=== PATIENT | female | born 1965 | race Caucasian/White ===

== ENCOUNTER 2017-08-23 23:08 | Emergency (ER) | payer OTHER ==
[~2017-08-23] VITALS: Ht 152.4 cm; Wt 86.7 kg
[2017-08-23 23:10] VITALS: BP 149/90
[2017-08-24] MEDS ORDERED: KETOROLAC 60 MG/2 ML VIAL IM ONE (00:05)
[2017-08-24] MEDS ORDERED: LEVOFLOXACIN 500 MG/D5W PREMIX 100 ML IV ONE (00:50)
[2017-08-24 01:20] VITALS: BP 142/88
== END 2017-08-24 01:20 | disposition home or self-care (01) ==
LOC: MED 23:08
DX: K56.7 Ileus, unspecified (principal); R03.0 Elevated blood-pressure reading, without diagnosis of hypertension; Z88.0 Allergy status to penicillin
CPT/HCPCS: 74022; 96372; 99284; J1885; J1956